=== PATIENT | female | born 1950 | race Caucasian/White ===

== ENCOUNTER 2022-03-02 14:31 | Observation (INO) | payer MEDICARE, SELFPAY ==
[2022-03-02] VITALS (21 sets, daily range): BP systolic 103–160; BP diastolic 45–98; PULSE 57–85; RESP 15–23; TEMP 36.1–36.8; O2SAT 94–100; BMI 27.8
--- NOTE | ~2022-03-02 | CT_ITS ---
EXAMINATION: CTA chest PE protocol DATE: 03/02/2022 18:11 INDICATION: chest pain and dyspnea TECHNIQUE: Computed tomography angiography (CTA) of the chest was performed with 100 mL Omnipaque-350 intravenous contrast timed to evaluate the pulmonary arteries. Coronal maximum intensity projection 3D-reconstructions were created by the technologist. The dose-length product (DLP) was 426.11 mGy-cm. Automated exposure control and iterative reconstruction technique were employed. COMPARISON: X-ray chest, same date. FINDINGS: Lung parenchyma and airways: Mild dependent atelectasis and basilar scarring. Pleura: Unremarkable. Thoracic inlet, axillae and chest wall: Unremarkable. Thoracic aorta: Mild arch calcification.. Mediastinum: Normal. Heart and pericardium: Mild q. daily. Mitral calcification. Coronary artery calcifications: Mild. Upper abdomen: No significant finding. Bones: No acute osseous finding. Pulmonary arteries: Study quality: Adequate. No pulmonary emboli detected. IMPRESSION: No CT evidence of acute pulmonary embolus. Reviewed, dictated and finalized at location K.
--- NOTE | ~2022-03-02 | XR_ITS ---
EXAMINATION: XR chest 2V Exam Date/Time: 03/02/2022 15:14 CDT HISTORY: MIDSTERNAL CHEST PAIN AND DIARRHEA TODAY HX HTN Comparison: 04/10/2019. RESULT: Lines, tubes, and devices: None. Lungs and pleura: Clear. Cardiomediastinal silhouette: Stable. Other: No acute osseous or upper abdominal finding. IMPRESSION: No acute cardiopulmonary process. Reviewed, dictated and finalized at location K.
--- NOTE | 2022-03-02 14:36 | ECG_ITS ---
Measurements Intervals [place] Rate: 56 P: 10 CO: 151 QRS: 0 QRSD: 89 T: 29 QT: 410 QTc: 396 Interpretive Statements SINUS BRADYCARDIA BORDERLINE ECG Electronically Signed On 03-02-2022 16:38:27 CDT by Yimi Flores D.O.
--- NOTE | 2022-03-02 14:52 | ED.CHESTPAIN ---
HPI - Chest Pain General Chief Complaint: Chest Pain Stated Complaint: chest pain Time Seen by Provider: 03/02/22 14:37 Source: RN notes reviewed History of Present Illness HPI narrative: Patient presents emergency room from home for chest pain. Patient states pain began approximately 2 PM this afternoon pain is located midsternal chest and does not radiate described as burning in nature. Patient states that there is no associated shortness of breath she denies any radiation of the pain she denies any abdominal pain nausea vomiting diarrhea or any other symptoms. She did take it 325 mg aspirin at home with relief Related Data Allergies Allergy/AdvReac Type Severity Reaction Status Date / Time alendronate sodium Allergy Unknown Unknown Verified 03/02/22 14:32 metronidazole Allergy Unknown Unknown Verified 03/02/22 14:32 simvastatin Allergy Unknown Unknown Verified 03/02/22 14:32 Review of Systems Review of Systems: Gen.: Denies fevers or chills ENT: Denies congestion Respiratory: Denies shortness of breath or cough CV: See HPI GI: Denies abdominal pain nausea, emesis or diarrhea Musculoskeletal: Denies back pain or muscle pain Neuro: Denies numbness, tingling, weakness or focal weakness Skin: Denies rash Except as documented, all other systems reviewed and negative [facility] Past Medical History Medical History (Updated 03/02/22 @ 18:35 by Sai Segovia DO) Anxiety Cerebrovascular accident Esophageal ulcer Gastroesophageal reflux disease Hypertension Hypothyroidism Osteopenia Prediabetes Surgical History Surgical History (Updated 03/02/22 @ 18:34 by Saloni Pisano PA-C) History of cataract extraction with lens replacement History of cholecystectomy Family History Family History Other Breast cancer Cerebrovascular accident Diabetes mellitus Hypertension Social History Social History (Updated 03/02/22 @ 18:36 by Saloni Pisano PA-C) Social History: Surrogate medical decision maker: Kd Mike, spouse. Code status: Full code. Smoking status: Never smoker Alcohol intake: current Alcohol use details: Rare alcohol use in moderation. Living arrangements: with family Occupation/Education: retired Exam Narrative: APPEARANCE: No acute distress, nontoxic, resting in bed EYES: EOMI HEENT: Normocephalic, atraumatic, OMM RESPIRATORY: No respiratory distress Clear to auscultation bilaterally with no rhonchi wheezing or rales. CARDIOVASCULAR: Regular rate and rhythm without murmurs rubs or gallops. Chest: Tender palpation over the anterior chest wall just to the right of the sternum and region of ribs 6 through 8 no sign ecchymosis ABDOMINAL: Soft, nontender, nondistended, no rebound or guarding MUSCULOSKELETAl: Moves all extremities. No clubbing, cyanosis or edema. NEURO: Awake and alert. Following commands, speech normal, no focal deficits SKIN:: Warm, dry. No rashes lesions or abrasions PSYCHIATRIC: Normal affect/mood, Course Course Emergency Course: Patient continues to have pain GI cocktail given with minimal relief Patient states pain is improved at this time Called and discussed Dr. Hernandez agrees with consult Discussed with MELINA Guallpa for Dr. Mcgowan agrees with admission Discussed with patient and family results of workup and diagnosis. Discussed need for admission. Patient and family understand and agree to current treatment plan Vital Signs Vital signs: Vital Signs Temperature 97 F L 03/02/22 14:33 Pulse Rate 61 03/02/22 14:33 Respiratory Rate 16 03/02/22 14:33 Blood Pressure 150/61 H 03/02/22 14:33 Pulse Oximetry 100 03/02/22 14:33 Oxygen Delivery Room Air 03/02/22 14:33 Temperature 97.5 F L 03/02/22 14:45 Pulse Rate 61 03/02/22 14:45 Respiratory Rate 16 03/02/22 14:33 Blood Pressure 160/68 H 03/02/22 14:45 Pulse Oximetry 100 03/02/22 14:45 Oxygen Delivery Vivian
[2022-03-02 14:58] LABS: Basophils Percent Auto 0.6 % (0.2-1.2); Eosinophils Absolute Auto 0.1 K/mm3 (0-0.3); Hematocrit 39.5 % (37.0-47.0); Hemoglobin 12.6 g/dL (12.0-15.0); Immature Granulocyte Absolute 0.02 K/mm3 (0.00-0.031); Immature Granulocyte Percent A 0.3 % (0-0.5); Lymphocytes Absolute Auto 2.26 K/mm3 (0.9-3.2); Lymphocytes Percent Auto 31.6 % (18.3-44.2); Mean Corpuscular HGB Conc 31.9 g/dl (32-36); Mean Corpuscular Hemoglobin 30.2 pg (26-34); Mean Corpuscular Volume 94.7 fl (80-100); Mean Platelet Volume 9.5 fl (7.4-10.4); Monocytes Absolute Auto 0.7 K/mm3 (0.1-0.6); Monocytes Percent Auto 9.6 % (2.6-8.5); Neutrophils Absolute Auto 4.1 K/mm3 (1.3-6.7); Neutrophils Percent Auto 56.9 % (45.5-73.1); Platelet Count Result 345 k/mm3 (150-375); Red Blood Count 4.17 M/mm3 (4.2-5.4); Red Cell Distribution Width 13.1 % (11.5-14.5); White Blood Count 7.2 K/mm3 (4.5-10.0)
[2022-03-02 15:08] LABS: Alanine Aminotransferase 24 U/L (6-35); Albumin Level 4.7 g/dL (3.5-5.1); Alkaline Phosphatase 69 U/L (38-126); Anion Gap 10 mmol/L (8-16); Aspartate Amino Transferase 25 U/L (14-36); Bilirubin,Total 0.4 mg/dL (0.2-1.3); Blood Urea Nitrogen 18 mg/dL (7-17); Calcium 9.8 mg/dL (8.4-10.2); Carbon Dioxide 28 mmol/L (22-30); Chloride 103 mmol/L (98-107); Estimated Glomerular Filt Rate > 60; Glucose 89 mg/dL (65-110); Lipase 127 U/L (23-300); Potassium 3.6 mmol/L (3.4-5.0); Sodium 141 mmol/L (137-145)
[2022-03-02 15:10] LABS: Prothrombin Time 12.9 Seconds (11.1-14.7)
[2022-03-02 15:11] LABS: Partial Thromboplastin Time 33.7 SECONDS (22.3-36.8)
[2022-03-02 15:19] LABS: Troponin I < 0.012 ng/mL (0.000-0.034)
[2022-03-02 18:01] LABS: Troponin I < 0.012 ng/mL (0.000-0.034)
--- NOTE | 2022-03-02 18:30 | PM.IMHP ---
H&P: HPI History of Present Illness Date/Time: 03/02/22 18:30 Chief Complaint: Chest pain. Narrative: This is a 71-year-old female with hypertension, sleep apnea, hypothyroidism, and GERD who presented to the ED from home for evaluation of chest pain which started 45 minutes prior to arrival. She has not felt great for the past couple of days with vague symptoms to include mild upset stomach, loose stools, and decreased appetite. This morning she slept in later than usual and she has been fatigued most of the day. She had a small amount of deli meat for lunch and seemed to tolerate that well. At around 14:00 she was standing at the kitchen sink when she developed sudden discomfort in the substernal chest that she initially thought was indigestion as it was burning in nature however it became more severe, almost like a stabbing sensation. The pain does not radiate and she has not noticed any significant aggravating or alleviating factors. There was no associated dizziness, sweats, nausea, vomiting, or shortness of breath. Her symptoms were similar to those her experience with his 1st heart attack so she took aspirin 325 mg x 1 and came to the emergency department. In the emergency department, she was given a GI cocktail which was not very beneficial. Her symptoms have essentially resolved, however and have not returned. She has never had similar symptoms in the past and she has no known history of cardiac disease. A stress test done decades ago was reportedly unremarkable. Review of Systems Review of Systems: Twelve systems were reviewed. No fever, chills, or sweats. No recent cold or flu symptoms. No sick contacts. No cough. No palpitations. No orthopnea, paroxysmal nocturnal dyspnea, or lower extremity edema. She denies vomiting. No bloating. No belching. No melena or hematochezia. Except as documented, all other systems were reviewed and are negative. [facility] Past Medical History Medical History (Updated 03/02/22 @ 23:38 by Saloni Pisano PA-C) Anxiety Cerebrovascular accident Diverticulitis Esophageal ulcer Gastroesophageal reflux disease Hypertension Hypothyroidism Obstructive sleep apnea Osteopenia Prediabetes Surgical History Surgical History (Updated 03/02/22 @ 18:34 by Saloni Pisano PA-C) History of cataract extraction with lens replacement History of cholecystectomy Family History Family History Sibling Breast cancer Mother Diabetes mellitus Sibling Cerebrovascular accident Mother Hypertension Father Hypertension Sibling Hypertension Social History Social History Social History: Surrogate medical decision maker: Kd Mckeon, spouse. Code status: Full code. Smoking status: Never smoker Second hand tobacco smoke exposure: No Alcohol intake: current Drinks per week: 1 Alcohol use details: Rare alcohol use in moderation. Substance use: never Substance use type: does not use Living arrangements: with family Occupation/Education: retired Spiritual care concerns: No Meds Home Medications and Allergies Home Medications Medication Instructions Recorded Confirmed Type Aspercreme 1 dose topical PRN arthritis pain 03/02/22 03/02/22 History acetaminophen 650 mg 650 mg PO Q8H PRN Pain 03/02/22 03/02/22 History tablet,extended release (Tylenol 8 Hour) albuterol sulfate 90 mcg/actuation 2 puff inhalation QID PRN 03/02/22 03/02/22 History aerosol inhaler Shortness Of Breath Or Wheezing alprazolam 0.25 mg tablet 0.25 mg PO HS PRN Anxiety 03/02/22 03/02/22 History ezetimibe 10 mg BYMOUTH HS 03/02/22 03/02/22 History fexofenadine 180 mg tablet 180 mg PO HS allergies 03/02/22 03/02/22 History fluticasone propionate 50 1 spray intranasal BID 03/02/22 03/02/22 History mcg/actuation nasal spray,suspension guaifenesin 1,200 mg tablet, 1,200
--- NOTE | 2022-03-02 19:52 | ADMGEN ---
This patient, Jenifer Mckeon, was admitted to IMU Room 211-01 at 1945. Patient/family oriented to hospital policies and general routines including ID bracelet, bed and alarms, visiting hours, pain management, procedures, bathroom and other care routines, personal items, smoking policy, room service/diet, and visiting hours. Information on how to activate the Rapid Response Team has been discussed. Patient/Family are encouraged to report perceived risks to care and to ask questions if they do not understand what they are told or what they should do.
[2022-03-02 21:00] LABS: Troponin I < 0.012 ng/mL (0.000-0.034)
[2022-03-03] VITALS (7 sets, daily range): BP systolic 130–136; BP diastolic 48–66; PULSE 68–94; RESP 16–20; TEMP 36.2–36.6; O2SAT 97–100
[2022-03-03] MEDS: guaiFENesin 12 HR 600 MG TABCR 1200 MG PO ×2 (00:40→09:14)
[2022-03-03] MEDS: ALPRAZolam (*CRX) 0.25 MG TABLET PO (00:41)
[2022-03-03] MEDS: ACETAMINOPHEN 325 MG TABLET 650 MG PO ×2 (00:41→09:13)
[2022-03-03 04:47] LABS: Basophils Percent Auto 0.6 % (0.2-1.2); Eosinophils Absolute Auto 0.1 K/mm3 (0-0.3); Eosinophils Percent Auto 1.4 % (0-4.4); Hematocrit 38.1 % (37.0-47.0); Hemoglobin 12.6 g/dL (12.0-15.0); Immature Granulocyte Absolute 0.01 K/mm3 (0.00-0.031); Immature Granulocyte Percent A 0.2 % (0-0.5); Lymphocytes Absolute Auto 2.17 K/mm3 (0.9-3.2); Lymphocytes Percent Auto 34.4 % (18.3-44.2); Mean Corpuscular HGB Conc 33.1 g/dl (32-36); Mean Corpuscular Hemoglobin 30.7 pg (26-34); Mean Corpuscular Volume 92.9 fl (80-100); Mean Platelet Volume 9.7 fl (7.4-10.4); Monocytes Absolute Auto 0.6 K/mm3 (0.1-0.6); Neutrophils Absolute Auto 3.4 K/mm3 (1.3-6.7); Neutrophils Percent Auto 53.4 % (45.5-73.1); Platelet Count Result 329 k/mm3 (150-375); Red Cell Distribution Width 12.9 % (11.5-14.5); White Blood Count 6.3 K/mm3 (4.5-10.0)
[2022-03-03 04:59] LABS: Alanine Aminotransferase 22 U/L (6-35); Albumin Level 4.2 g/dL (3.5-5.1); Alkaline Phosphatase 66 U/L (38-126); Anion Gap 8 mmol/L (8-16); Aspartate Amino Transferase 25 U/L (14-36); Bilirubin,Total 0.5 mg/dL (0.2-1.3); Blood Urea Nitrogen 19 mg/dL (7-17); Calcium 9.8 mg/dL (8.4-10.2); Carbon Dioxide 28 mmol/L (22-30); Chloride 105 mmol/L (98-107); Estimated Glomerular Filt Rate 55; Glucose 105 mg/dL (65-110); Magnesium 2.1 mg/dL (1.6-2.3); Potassium 3.6 mmol/L (3.4-5.0); Sodium 141 mmol/L (137-145)
[2022-03-03] MEDS: LEVOTHYROXINE SODIUM 50 MCG TABLET PO (05:33)
--- NOTE | 2022-03-03 08:28 | ECG_ITS ---
Measurements Intervals [place] Rate: 64 P: 25 NV: 150 QRS: -7 QRSD: 89 T: 16 QT: 422 QTc: 437 Interpretive Statements SINUS RHYTHM INFERIOR INFARCT, AGE INDETERMINATE BASELINE ARTIFACT- I, II, AVR, V1-V3 ABNORMAL ECG Electronically Signed On 03-03-2022 14:37:07 CDT by Yimi Flores D.O.
[2022-03-03] MEDS: hydroCHLOROthiazide 25 MG TABLET PO (09:13)
[2022-03-03] MEDS: LOSARTAN POTASSIUM 100 MG TABLET PO (09:13)
[2022-03-03] MEDS: PANTOPRAZOLE 40 MG TABLET PO (09:13)
[2022-03-03] MEDS: FLUTICASONE PROPIONATE 0.05% NA SPR 16 GM BTL (*BKC) 1 SPRAY NASAL (09:14)
--- NOTE | 2022-03-03 09:43 | PM.CNCAR ---
Assessment and Plan Assessment and plan (1) Chest pain: Code(s): R07.9 - Chest pain, unspecified Status: Acute Assessment and Plan: Early lady with atypical chest pain but risk factors for CAD and also coronary artery calcification. Troponins negative x3, EKG normal x2, atypical features Chest wall tenderness suggest costochondritis Some of this may have been GI as well since she has a history of GERD, had diarrhea etc.. I believe this is noncardiac pain in the patient can be discharged today. No further cardiac workup recommended unless patient has recurrent symptoms. (2) Hypertension: Code(s): I10 - Essential (primary) hypertension Status: Acute Assessment and Plan: Blood pressure at goal (3) Carotid bruit: Code(s): R09.89 - Other specified symptoms and signs involving the circulatory and respiratory systems Status: Acute Assessment and Plan: Left carotid bruit. Asymptomatic. Apparently had a carotid ultrasound several years ago which did not show much disease Recommend she follow-up with her primary care doctor; may need a re-evaluation (4) Coronary artery calcification: Code(s): I25.10 - Atherosclerotic heart disease of [place] coronary artery without angina pectoris; I25.84 - Coronary atherosclerosis due to calcified coronary lesion Status: Acute Assessment and Plan: Incidental finding of coronary artery calcification by CT scan. Also aortic atherosclerosis. Recommend aspirin 81 mg daily Follow-up with PMD; may need more aggressive lipid management (5) Hyperlipidemia: Code(s): E78.5 - Hyperlipidemia, unspecified Status: Acute Assessment and Plan: History of hyperlipidemia, intolerant to Zocor, taking ezetimibe now. Patient tells me her bad cholesterol is running in the 140s. May benefit from further lipid lowering therapy, such as another trial of a different statin. Follow-up with PMD for further discussion History of Present Illness History of Present Illness Consult date/time: 03/03/22 09:43 Reason For Visit: Chest Pain Narrative: Jenifer Larson is a 71-year-old female whom I was asked to see at the request of Dr. Segovia for my advice and opinion regarding her chest discomfort, in consultation. She has a history of hypertension, hyperlipidemia, sleep apnea, hypothyroidism and GERD. No history of any heart disease. She had a carotid ultrasound a few years ago which did not show much disease. She had trouble with Zocor which cause some joint pain and swelling. The patient has not felt well for the last couple of days, with fatigue and to thought perhaps she had a virus. She had some diarrhea yesterday morning. Then she had sudden onset of heartburn in the right mid chest area followed by stabbing chest pain. Her was concerned as he had similar symptoms when he had his heart attack. The discomfort did not go way, and she took some aspirin and Pepcid came to the emergency room. There she was given Tylenol and a GI cocktail without much improvement but the discomfort lessened. She still has some discomfort in the right parasternal area with a sore spot at the midsternal costochondral junction. The discomfort was nonpositional, nonpleuritic. No diaphoresis or shortness of breath. No unusual physical activity recently. Review of Systems Constitutional: Constitutional: Reports fatigue and Denies fever(s) Eyes: Eyes: Reports no additional eye complaints ENT: Denies epistaxis Cardiovascular: Cardiovascular: Reports chest pain, Denies pedal edema, Denies lightheadedness and Denies dyspnea Respiratory: Respiratory: Denies chest congestion and Denies dyspnea Gastrointestinal: Gastrointestinal: Denies abdominal pain, Denies hematochezia and Reports diarrhea Genitourinary: Genitourinary:
--- NOTE | 2022-03-03 10:40 | PM.DS ---
DS: Admitting Diagnosis Discharge Date March 03, 2022 Admitting Diagnosis Chest pain DS: Discharge Diagnosis Discharge Diagnosis (1) Chest pain: Code(s): R07.9 - Chest pain, unspecified Status: Acute Assessment and Plan: Atypical for cardiac etiology. Cardiology evaluated patient and recommended no further workup. Follow cardiology's outpatient (2) Hypertension: Code(s): I10 - Essential (primary) hypertension Status: Acute Assessment and Plan: Pressures were reviewed and they are stable. Continue antihypertensives and monitor. (3) Gastroesophageal reflux disease: Code(s): K21.9 - Gastro-esophageal reflux disease without esophagitis Status: Acute Assessment and Plan: Patient reports not much relief from GI cocktail today. Continue omeprazole. (4) Hypothyroidism: Code(s): E03.9 - Hypothyroidism, unspecified Status: Acute Assessment and Plan: Continue levothyroxine and check TSH. DS: Summary Hospital Course Hospital Course: Patient med for chest pain. Negative troponin, negative workup otherwise. Cardiology recommended no further workup Time Spent with Patient Time attestation: Total time spent providing and/or coordinating discharge services: Exam Narrative: General: Well-developed female sitting up in bed in no distress. Weight: 62.4 kg. BMI: 27.8. HEENT: PERRL, EOMI. Conjunctivae anicteric. Oral mucosa moist. Oropharynx clear. Neck: Supple. No JVD or obvious carotid bruits. Respiratory: Lungs are clear to auscultation bilaterally. Cardiovascular: Regular rate and rhythm with S1-S2. Chest: Mild reproducible tenderness to palpation over the anterior chest, just right of the midsternal region. Gastrointestinal: Abdomen is soft, nontender, and nondistended with positive bowel sounds. No guarding or rebound tenderness. Skin: Warm and dry. No rash or lesions on limited exam. Extremities: No cyanosis, clubbing, or edema. Radial and pedal pulses intact. Neurological: Alert. Cranial nerves 2-12 are grossly intact. No gross focal deficits to casual conversation. Psychiatric: Pleasant and cooperative with appropriate mood and affect. DS: Data Data Completed and Pending Labs on day of discharge: Labs from last 24 hours 03/03/22 03/03/22 03/03/22 04:21 04:21 04:21 WBC 6.3 RBC 4.10 L Hgb 12.6 Hct 38.1 MCV 92.9 MCH 30.7 MCHC 33.1 RDW 12.9 Plt Count 329 MPV 9.7 Immature Gran % (Auto) 0.2 Neut % (Auto) 53.4 Lymph % (Auto) 34.4 [place] % (Auto) 10.0 H Eos % (Auto) 1.4 Baso % (Auto) 0.6 Lymph # (Auto) 2.17 [place] # (Auto) 0.6 Eos # (Auto) 0.1 Baso # (Auto) 0.0 Abs Immat Gran (auto) 0.01 Absolute Neuts (auto) 3.4 Absolute Nucleated RBC 0.0 Nucleated RBC % 0.0 PT INR APTT Sodium 141 Potassium 3.6 Chloride 105 Carbon Dioxide 28 Anion Gap 8 BUN 19 H Creatinine 1.00 Estim Creat Clear Calc Not Reportable Estimated GFR 55 L Glucose 105 Calcium 9.8 Magnesium 2.1 Total Bilirubin 0.5 AST 25 ALT 22 Alkaline Phosphatase 66 Troponin I Total Protein 7.0 Albumin 4.2 Lipase TSH (Reflex) 1.080 03/02/22 03/02/22 03/02/22 20:32 17:35 14:51 WBC RBC Hgb Hct MCV MCH MCHC RDW Plt Count MPV Immature Gran % (Auto) Neut % (Auto) Lymph % (Auto) [place] % (Auto) Eos % (Auto) Baso % (Auto) Lymph # (Auto) [place] # (Auto) Eos # (Auto) Baso # (Auto) Abs Immat Gran (auto) Absolute Neuts (auto) Absolute Nucleated RBC Nucleated RBC % PT INR APTT Sodium 141 Potassium 3.6 Chloride 103 Carbon Dioxide 28 Anion Gap 10 BUN 18 H Creatinine 0.90 Estim Creat Clear Calc Not Reportable Estimated GFR > 60 Glucose 89 Calcium 9.8 Magnesium Total Bilirubin 0.4 AST
== END 2022-03-03 11:45 | disposition home or self-care (01) ==
LOC: ANHED 18:35 → ANHIMU 19:34
PROVIDERS: Emergency Medicine; Physician Assistant; Admitting Provider Chiropractor; Emergency Provider Emergency Medicine; PCP Family Medicine; Visit Provider Chiropractor
DX: R07.9 Chest pain, unspecified (principal); I10 Essential (primary) hypertension; I25.10 Atherosclerotic heart disease of native coronary artery without angina pectoris; R09.89 Other specified symptoms and signs involving the circulatory and respiratory systems; E78.5 Hyperlipidemia, unspecified; E03.9 Hypothyroidism, unspecified; G47.30 Sleep apnea, unspecified; K21.9 Gastro-esophageal reflux disease without esophagitis; Z86.73 Personal history of transient ischemic attack (TIA), and cerebral infarction without residual deficits; Z79.51 Long term (current) use of inhaled steroids
CPT/HCPCS: 36415; 71046; 71275; 80053; 83690; 83735; 84443; 84484; 85025; 85610; 85730; 93005; 99285; A9270; G0378; Q9967

== ENCOUNTER 2022-03-29 19:26 | Emergency (ER) | payer MEDICARE, SELFPAY ==
--- NOTE | ~2022-03-29 | CT_ITS ---
EXAMINATION: CT cervical spine wo con DATE: 03/29/2022 21:30 INDICATION: Head injury post fall TECHNIQUE: Computed tomography (CT) of the cervical spine was performed without intravenous contrast. Automated exposure control and iterative reconstruction technique were employed. The dose-length pro duct was 275.99 mGy-cm. COMPARISON: None FINDINGS: Mild lower cervical levocurvature. 1 mm anterolisthesis C3 on C4 and C4-C5 and 2 mm anterolisthesis C 5 on C6. Vertebral body heights are normal. No fracture. Moderate disc height loss at C5-C6 and mild disc height loss at the remaining cervical levels. Additional moderate disc height loss at T2-T3 and T3-T4. Multilevel severe facet osteoarthritis bilaterally throughout the cervical and upper thoracic spine. There is also multilevel mild to moderate cervical uncovertebral osteoarthritis. This results in moderate neural foraminal stenosis bilaterally at C5-C6 and mild at the majority the remaining cer vical levels. No significant stenosis of the osseous central canal. Mild biapical pleural-parenchymal scarring with small calcifications. Cervical soft tissues are unremarkable. IMPRESSION: 1. Moderate cervical spondylosis. No acute osseous abnormality. Reviewed, dictated and finalized at location A.
--- NOTE | ~2022-03-29 | XR_ITS ---
EXAMINATION: XR foot LT min 3V DATE: 03/30/2022 00:45 INDICATION: Left foot pain TECHNIQUE: Dorsoplantar, lateral, and oblique views of the left foot were obtained. COMPARISON: None. FINDINGS: There is an acute nondisplaced fracture of the first proximal phalanx. No additional fractu re is identified. There is mild osteoarthritis of the first metatarsophalangeal joint and multiple in terphalangeal joints. IMPRESSION: 1. Acute, nondisplaced fracture of the first proximal phalanx. Reviewed, dictated and finalized at location A.
--- NOTE | ~2022-03-29 | CT_ITS ---
EXAMINATION: CT brain wo con DATE: 03/29/2022 21:30 INDICATION: Head injury TECHNIQUE: Computed tomography (CT) of the head was performed without intravenous contrast. Sagittal and coronal reconstructions were performed. Automated exposure control and iterative reconstruction t echnique were employed. The dose-length product was 605.33 mGy-cm. COMPARISON: head CT dated 04/10/19 FINDINGS: Small left parietal scalp hematoma. No fracture. No acute intracranial hemorrhage, acute infarction o r abnormal extra axial fluid collection. Ventricles are normal and symmetric. No mass/mass effect. Changes of bilateral intraocular lens replacement. The orbits, paranasal sinuses and mastoid air cell s are normal. IMPRESSION: 1. No fracture or acute intracranial process. Reviewed, dictated and finalized at location A.
--- NOTE | ~2022-03-29 | XR_ITS ---
EXAMINATION: XR shoulder LT min 2V INDICATION: Left shoulder pain TECHNIQUE: Four views of the left shoulder are submitted. COMPARISON: None FINDINGS: Normal alignment. No fracture. There is moderate glenohumeral and acromioclavicular joint o steoarthritis. Soft tissues are unremarkable. IMPRESSION: 1. Osteoarthritis without acute osseous abnormality. Reviewed, dictated and finalized at location A.
[2022-03-29 20:07] VITALS: BP 144/55; PULSE 75; RESP 18; TEMP 36.8; O2SAT 99
--- NOTE | 2022-03-30 00:31 | ED.GENADULT ---
HPI - General Adult General Chief complaint: Fall Stated complaint: fall, head trauma Time Seen by Provider: 03/29/22 23:08 History of Present Illness HPI narrative: Patient 71-year-old female presents emergency department with chief complaint of head injury. The patient reports she was carrying a box and walking on the steps twisted her left foot and had pain in the left toe the patient reports that she also has pain in the left shoulder. The patient reports that she has bruising in the toe reports that pain is worse with movement and improved with rest. Related Data Home Medications Medication Instructions Recorded Confirmed Aspercreme 1 dose topical PRN arthritis pain 03/02/22 03/02/22 acetaminophen 650 mg 650 mg PO Q8H PRN Pain 03/02/22 03/02/22 tablet,extended release (Tylenol 8 Hour) albuterol sulfate 90 mcg/actuation 2 puff inhalation QID PRN 03/02/22 03/02/22 aerosol inhaler Shortness Of Breath Or Wheezing alprazolam 0.25 mg tablet 0.25 mg PO HS PRN Anxiety 03/02/22 03/02/22 ezetimibe 10 mg BYMOUTH HS 03/02/22 03/02/22 fexofenadine 180 mg tablet 180 mg PO HS allergies 03/02/22 03/02/22 fluticasone propionate 50 1 spray intranasal BID 03/02/22 03/02/22 mcg/actuation nasal spray,suspension guaifenesin 1,200 mg tablet, 1,200 mg PO Q12H 03/02/22 03/02/22 extended release 12 hr (Mucinex) levothyroxine 50 mcg PO QAM 03/02/22 03/02/22 losartan 100 1 tablet PO QAM 03/02/22 03/02/22 mg-hydrochlorothiazide 25 mg tablet metoprolol succinate 50 mg capsule 50 mg PO DAILY 03/02/22 03/02/22 sprinkle, ext. release 24 hr omeprazole 40 mg capsule,delayed 40 mg PO QAM 03/02/22 03/02/22 release ondansetron 4 mg disintegrating 4 mg PO Q8H PRN Acid Reflux 03/02/22 03/02/22 tablet Allergies Allergy/AdvReac Type Severity Reaction Status Date / Time simvastatin Allergy Mild Joint Pain Verified 03/29/22 20:09 alendronate sodium Allergy Unknown Unknown Verified 03/29/22 20:09 metronidazole Allergy Unknown Unknown Verified 03/29/22 20:09 Review of Systems Review of Systems: A 10 system review of systems was completed on the patient and is negative except for what is stated in the HPI. Nursing and ancillary documentation was reviewed. [facility] Past Medical History Medical History Anxiety Cerebrovascular accident Diverticulitis Esophageal ulcer Gastroesophageal reflux disease Hypertension Hypothyroidism Obstructive sleep apnea Osteopenia Prediabetes Surgical History Surgical History History of cataract extraction with lens replacement History of cholecystectomy Family History Family History Sibling Breast cancer Heart disease Sister had rheumatic fever and valve replacement Mother Diabetes mellitus Sibling Cerebrovascular accident Heart disease Brother had [place] and stroke [place] Mother Hypertension Father Hypertension Sibling Hypertension Social History Social History Social History: Surrogate medical decision maker: Kd Mckeon, spouse. Code status: Full code. Smoking status: Never smoker Second hand tobacco smoke exposure: No Alcohol intake: current Drinks per week: 1 Alcohol use details: Rare alcohol use in moderation. Substance use: never Substance use type: does not use Spiritual care concerns: No Exam Narrative: GENERAL: Well-appearing, well-nourished, and in no acute distress. HEAD: Normocephalic, atraumatic. EYES: PERRLA and EOMI. ENT: Nares clear, no rhinorrhea or epistaxis. Mucous membranes moist. NECK: Supple. CHEST: Clear to auscultation. No respiratory distress. HEART: Regular rate and rhythm. No murmur heard. Normal peripheral pulses. ABDOMEN: Soft, nontender, nondistended, normal active
[2022-03-30] MEDS: HYDROcodone/acetaminophen (*CRX) 5-325 MG TABLET 1 TAB PO (00:34)
[2022-03-30 02:20] VITALS: RESP 18; O2SAT 97
== END 2022-03-30 02:20 | disposition home or self-care (01) ==
PROVIDERS: Emergency Provider Emergency Medicine; PCP Family Medicine
DX: S09.90XA Unspecified injury of head, initial encounter (principal); S16.1XXA Strain of muscle, fascia and tendon at neck level, initial encounter; S46.912A Strain of unspecified muscle, fascia and tendon at shoulder and upper arm level, left arm, initial encounter; S92.415A Nondisplaced fracture of proximal phalanx of left great toe, initial encounter for closed fracture; M19.012 Primary osteoarthritis, left shoulder; W10.9XXA Fall (on) (from) unspecified stairs and steps, initial encounter
CPT/HCPCS: 70450; 72125; 73030; 73630; 99284; A9270

== ENCOUNTER 2022-06-18 15:05 | Emergency (ER) | payer MEDICARE, SELFPAY ==
--- NOTE | ~2022-06-18 | XR_ITS ---
EXAMINATION: XR chest 2V DATE: 06/18/2022 15:51 INDICATION: Central chest pain TECHNIQUE: PA and lateral views of the chest were obtained. COMPARISON: Chest radiograph and CT dated 03/02/2022 FINDINGS: Opacity anterolateral left lung base along the apex of the heart corresponding to a small amount of p ericardial fat tracking along the caudal aspect of the left major fissure. No other airspace opacitie s, pulmonary edema, pleural effusion or pneumothorax. The cardiomediastinal silhouette is normal. Mil d thoracic dextrocurvature with moderate spondylosis. IMPRESSION: 1. No acute cardiopulmonary disease. Reviewed, dictated and finalized at location B. [facility]
--- NOTE | 2022-06-18 15:15 | ECG_ITS ---
Measurements Intervals [place] Rate: 74 P: -37 IA: 132 QRS: -2 QRSD: 92 T: 26 QT: 384 QTc: 428 Interpretive Statements SINUS RHYTHM DELAYED PRECORDIAL R/S TRANSITION CONSIDER INFERIOR INFARCT, AGE INDETERMINATE ABNORMAL ECG COMPARED TO ECG 03/03/2022 09:35:20 NO SIGNIFICANT CHANGES Electronically Signed On 06-18-2022 15:19:55 [employer] by Yimi Flores D.O.
[2022-06-18 15:18] VITALS: BP 159/52; PULSE 80; RESP 14; TEMP 37.3; O2SAT 98
[2022-06-18 15:28] LABS: Basophils Percent Auto 0.7 % (0.2-1.2); Eosinophils Percent Auto 0.5 % (0-4.4); Hematocrit 38.1 % (37.0-47.0); Hemoglobin 12.5 g/dL (12.0-15.0); Immature Granulocyte Absolute 0.01 K/mm3 (0.00-0.031); Immature Granulocyte Percent A 0.2 % (0-0.5); Lymphocytes Absolute Auto 0.56 K/mm3 (0.9-3.2); Lymphocytes Percent Auto 12.6 % (18.3-44.2); Mean Corpuscular HGB Conc 32.8 g/dl (32-36); Mean Corpuscular Hemoglobin 30.9 pg (26-34); Mean Corpuscular Volume 94.1 fl (80-100); Mean Platelet Volume 9.3 fl (7.4-10.4); Monocytes Absolute Auto 0.8 K/mm3 (0.1-0.6); Monocytes Percent Auto 18.2 % (2.6-8.5); Neutrophils Percent Auto 67.8 % (45.5-73.1); Platelet Count Result 288 k/mm3 (150-375); Red Blood Count 4.05 M/mm3 (4.2-5.4); Red Cell Distribution Width 13.4 % (11.5-14.5); White Blood Count 4.4 K/mm3 (4.5-10.0)
[2022-06-18 15:38] LABS: Alanine Aminotransferase 26 U/L (6-35); Albumin Level 4.5 g/dL (3.5-5.1); Alkaline Phosphatase 66 U/L (38-126); Anion Gap 10 mmol/L (8-16); Aspartate Amino Transferase 30 U/L (14-36); Bilirubin,Total 0.3 mg/dL (0.2-1.3); Blood Urea Nitrogen 18 mg/dL (7-17); Calcium 9.5 mg/dL (8.4-10.2); Carbon Dioxide 24 mmol/L (22-30); Chloride 104 mmol/L (98-107); Estimated Glomerular Filt Rate 55; Glucose 118 mg/dL (65-110); Lipase 91 U/L (23-300); Potassium 3.3 mmol/L (3.4-5.0); Sodium 138 mmol/L (137-145)
[2022-06-18 15:44] LABS: Prothrombin Time 12.8 Seconds (11.1-14.7)
[2022-06-18 15:45] LABS: Partial Thromboplastin Time 36.7 SECONDS (22.3-36.8)
[2022-06-18 15:49] LABS: Troponin I < 0.012 ng/mL (0.000-0.034)
--- NOTE | 2022-06-18 20:16 | ED.GENADULT ---
HPI - General Adult General Chief complaint: Chest Pain Stated complaint: chest pain since last noc Time Seen by Provider: 06/18/22 19:44 History of Present Illness HPI narrative: Patient 71-year-old female who presents the emergency department with chief complaint of chest pain. Patient reports that last night she started by waking up and was very sweaty. The patient states that she started having an uncomfortable feeling in her chest that radiated to her back patient states the pain is worse with movement and reports that it hurts more on the left sternal border. The patient states that the diaphoresis has improved and the pain has eased up but it is still present. Patient reports that she has a history of carotid stenosis hypertension and high cholesterol the patient reports its been many years since her last stress test the patient reports she has significant family history for cardiac disease. The patient reports that she attempted to take an acids and other reflux medications without relief the patient states that she has had prior cholecystectomy and appendectomy. Related Data Home Medications Medication Instructions Recorded Confirmed Aspercreme 1 dose topical PRN arthritis pain 03/02/22 03/02/22 acetaminophen 650 mg 650 mg PO Q8H PRN Pain 03/02/22 03/02/22 tablet,extended release (Tylenol 8 Hour) albuterol sulfate 90 mcg/actuation 2 puff inhalation QID PRN 03/02/22 03/02/22 aerosol inhaler Shortness Of Breath Or Wheezing alprazolam 0.25 mg tablet 0.25 mg PO HS PRN Anxiety 03/02/22 03/02/22 ezetimibe 10 mg BYMOUTH HS 03/02/22 03/02/22 fexofenadine 180 mg tablet 180 mg PO HS allergies 03/02/22 03/02/22 fluticasone propionate 50 1 spray intranasal BID 03/02/22 03/02/22 mcg/actuation nasal spray,suspension guaifenesin 1,200 mg tablet, 1,200 mg PO Q12H 03/02/22 03/02/22 extended release 12 hr (Mucinex) levothyroxine 50 mcg PO QAM 03/02/22 03/02/22 losartan 100 1 tablet PO QAM 03/02/22 03/02/22 mg-hydrochlorothiazide 25 mg tablet metoprolol succinate 50 mg capsule 50 mg PO DAILY 03/02/22 03/02/22 sprinkle, ext. release 24 hr omeprazole 40 mg capsule,delayed 40 mg PO QAM 03/02/22 03/02/22 release ondansetron 4 mg disintegrating 4 mg PO Q8H PRN Acid Reflux 03/02/22 03/02/22 tablet Allergies Allergy/AdvReac Type Severity Reaction Status Date / Time simvastatin Allergy Mild Joint Pain Verified 03/29/22 20:09 alendronate sodium Allergy Unknown Unknown Verified 03/29/22 20:09 metronidazole Allergy Unknown Unknown Verified 03/29/22 20:09 Review of Systems Review of Systems: A 10 system review of systems was completed on the patient and is negative except for what is stated in the HPI. Nursing and ancillary documentation was reviewed. [facility] Past Medical History Medical History Anxiety Cerebrovascular accident Diverticulitis Esophageal ulcer Gastroesophageal reflux disease Hypertension Hypothyroidism Obstructive sleep apnea Osteopenia Prediabetes Surgical History Surgical History History of cataract extraction with lens replacement History of cholecystectomy Family History Family History Sibling Breast cancer Heart disease Sister had rheumatic fever and valve replacement Mother Diabetes mellitus Sibling Cerebrovascular accident Heart disease Brother had [place] and stroke [place] Mother Hypertension Father Hypertension Sibling Hypertension Social History Social History Social History: Surrogate medical decision maker: Kd Arredondoer, spouse. Code status: Full code. Smoking status: Never smoker Second hand tobacco smoke exposure: No Alcohol intake: current Drinks per week: 1 Alcohol use details: Rare alcohol use i
[2022-06-18 20:33] LABS: Troponin I < 0.012 ng/mL (0.000-0.034)
[2022-06-18 21:37] VITALS: BP 129/54; PULSE 87; RESP 19; O2SAT 95
--- NOTE | 2022-06-18 21:38 | PC.NURSE ---
Patient denies CP at this time. No nitro given
== END 2022-06-18 22:26 | disposition home or self-care (01) ==
PROVIDERS: Emergency Medicine; Emergency Provider Emergency Medicine; PCP Family Medicine
DX: R07.89 Other chest pain (principal); I10 Essential (primary) hypertension; I65.29 Occlusion and stenosis of unspecified carotid artery; E78.00 Pure hypercholesterolemia, unspecified; E03.9 Hypothyroidism, unspecified; G47.33 Obstructive sleep apnea (adult) (pediatric); K21.9 Gastro-esophageal reflux disease without esophagitis; K22.10 Ulcer of esophagus without bleeding; M85.80 Other specified disorders of bone density and structure, unspecified site; R73.03 Prediabetes; F41.9 Anxiety disorder, unspecified; Z86.73 Personal history of transient ischemic attack (TIA), and cerebral infarction without residual deficits; Z98.49 Cataract extraction status, unspecified eye; Z96.1 Presence of intraocular lens; R94.31 Abnormal electrocardiogram [ECG] [EKG]
CPT/HCPCS: 36415; 71046; 80053; 83690; 84484; 85025; 85610; 85730; 93005; 99284

== ENCOUNTER 2024-01-12 14:53 | Outpatient (NON) | payer MEDICARE, SELFPAY ==
[2024-01-12 15:22] LABS: Appearance Urine Clear (Clear); Bilirubin Urine Negative (Negative); Blood Urine Negative (Negative); Color Urine Light Yellow (Yellow); Glucose Urine UA Negative (Negative); Ketones Urine Negative (Negative); Leukocyte Esterase Ur Negative LEU/UL (Negative); Nitrate Urine Negative (Negative); Protein Urine Negative (Negative); Urobilinogen Urine 0.2 mg/dL (0.2-1.0); pH Urine 6.5 (5.0-8.0)
[2024-01-12 15:27] LABS: Add Urine Microscopic? NO
== END 2024-01-12 14:54 | disposition home or self-care (01) ==
PROVIDERS: PCP Family Medicine; Visit Provider Family Medicine
DX: R30.9 Painful micturition, unspecified (principal)
CPT/HCPCS: 81003

== ENCOUNTER 2024-06-21 12:30 | Outpatient (RCR) | payer MEDICARE, SELFPAY ==
[2024-02-24 15:58] VITALS: PULSE 79
== END 2024-06-21 23:59 | disposition home or self-care (01) ==
LOC: ANHCPREHAB 12:30
PROVIDERS: PCP Family Medicine
DX: Z95.1 Presence of aortocoronary bypass graft (principal)
CPT/HCPCS: 93798

== ENCOUNTER 2024-07-05 12:30 | Outpatient (RCR) | payer MEDICARE, SELFPAY | END 2024-07-05 13:29 | disposition home or self-care (01) | LOC: ANHCPREHAB 12:30 | PROVIDERS: PCP Family Medicine | DX: Z95.1 Presence of aortocoronary bypass graft (principal); I48.91 Unspecified atrial fibrillation | CPT/HCPCS: 93798 ==

== ENCOUNTER 2025-02-07 11:15 | Outpatient (RCR) | payer MEDICARE, SELFPAY | END 2025-02-07 23:59 | disposition home or self-care (01) | LOC: ANHCPREHAB 11:15 | PROVIDERS: PCP Family Medicine | DX: Z95.1 Presence of aortocoronary bypass graft (principal); I48.91 Unspecified atrial fibrillation | CPT/HCPCS: 93798 ==

== ENCOUNTER 2025-02-10 11:49 | Outpatient (RCR) | payer MEDICARE, SELFPAY | END 2025-03-03 09:34 | disposition home or self-care (01) | LOC: ANHCPREHAB 11:49 | PROVIDERS: PCP Family Medicine | DX: Z95.1 Presence of aortocoronary bypass graft (principal); I48.91 Unspecified atrial fibrillation | CPT/HCPCS: 93798 ==